=== PATIENT | male | born 1960 | race Caucasian/White ===

== ENCOUNTER 2016-10-08 19:37 | Emergency (ER) | payer OTHER ==
[~2016-10-08] VITALS: Ht 188 cm; Wt 125.3 kg
[2016-10-08 20:52] LABS: BLOOD UREA NITROGEN 22 mg/dL (7-18)
[2016-10-08 21:25] LABS: DIFF TOTAL CELLS COUNTED 100 CELL DIFF
[2016-10-08 21:32] LABS: VERIFY COUNTS? YES
[2016-10-08 21:34] LABS: ANISOCYTOSIS 1+; HYPOCHROMIA 2+; MICROCYTOSIS 2+; OVALOCYTES 1+; POIKILOCYTOSIS 1+; POLYCHROMASIA 1+
[2016-10-08 21:35] LABS: TARGET CELLS 1+
[2016-10-08 21:36] VITALS: BP 168/94
[2016-10-08 21:36] LABS: LARGE PLATELETS 1+
[2016-10-08] MEDS ORDERED: FERROUS SULFATE 325 MG TABLET PO ONE (22:30)
== END 2016-10-08 22:44 | disposition home or self-care (01) ==
LOC: ED 22:30
DX: D50.9 Iron deficiency anemia, unspecified (principal); G89.29 Other chronic pain; I10 Essential (primary) hypertension; K75.9 Inflammatory liver disease, unspecified; Z88.6 Allergy status to analgesic agent
CPT/HCPCS: 36415; 80048; 80076; 82040; 82728; 83540; 83550; 84466; 85025; 85610; 85730; 86850; 86900; 96361; 96374

== ENCOUNTER → 2017-02-19 | Outpatient (CLI) | payer OTHER | END | disposition home or self-care (01) | LOC: CFH 07:33 | PROVIDERS: ATTEND Internal Medicine Hematology & Oncology | DX: N28.1 Cyst of kidney, acquired (principal); M19.011 Primary osteoarthritis, right shoulder; Z85.46 Personal history of malignant neoplasm of prostate | CPT/HCPCS: 71020; 76700 ==